=== PATIENT | male | born 1965 | race Hispanic/Latino ===

== ENCOUNTER 2017-06-27 11:56 | Emergency (ER) | payer SELFPAY ==
[~2017-06-27 11:56] MED LIST: NAPROXEN500 M2 ORAL; NKM; NORCO 5-325 TA1 EACH PO
--- NOTE | 2017-06-27 12:24 | Emergency Room Report ---
History of Present Illness Present Illness HPI The patient is a 51-year-old male who has left before being triaged and has left without being seen (HERNESTO KAUFFMAN) Allergies: Coded Allergies: No Known Allergies (Unverified , 06/21/13) Patient History Past Medical History: see triage record Pertinent Family History: none (HERNESTO KAUFFMAN) Medical Decision Making PA Attestation Dr. Bahena is my supervising physician. Patient management was discussed with my supervising physician (HERNESTO KAUFFMAN) ER Course The patient is a 51-year-old male who has left before being triaged and has left without being seen (HERNESTO KAUFFMAN) ER Course Patient presented by ambulance. Upon arrival patient screaming to be seen immediately. I spoke the patient upon arrival. I asked the patient to keep his voice down as he was disrupting the emergency room. Patient continues to scream and yell. Patient states that the are not willing to treat him however nursing and I repeatedly asked the patient to be placed in a seat to be treated. Patient walked out of the emergency room on his own stating that he is not being treated and will go somewhere else. encounter witnessed by nursing and EMS personnel (CYN BAHENA M.D.) Status: unchanged (CYN BAHENA M.D.) Disposition: LEFT W/OUT BEING SEEN Condition: Unknown Referrals: NOT CHOSEN IPA/,REFERRING (PCP) HERNESTO KAUFFMAN Jun 27, 2017 12:24 CYN BAHENA M.D. Jun 27, 2017 15:15
== END 2017-06-27 12:52 | disposition left against medical advice (07) ==
LOC: EDBD 11:56 → EDUNIT# 11:56 → EMR 11:56
DX: J02.9 Acute pharyngitis, unspecified (principal); Z53.21 Procedure and treatment not carried out due to patient leaving prior to being seen by health care provider
CPT/HCPCS: 99281

== ENCOUNTER 2020-07-25 04:14 | Emergency (ER) | payer OTHER ==
[~2020-07-25] VITALS: Ht 167.6 cm; Wt 68.0 kg
--- NOTE | 2020-07-25 04:20 | NUR ---
ED Nurse Note: Patient brought into the ED by ambulance [id number] with c/o abdominal pain. PAin is at epigastric area,04/04, and stated he had surgery done 07/19 at [place] for esophageal varices. Patient stated he started vomiting small blood clots after vomiting with pain days after the surgery. Patient denies CP/SOB/, fever/chills. PAtient denies injury/trauma. Patient is AAOX4 and ambulatory. Placed on monitor bed
--- NOTE | 2020-07-25 04:21 | NUR ---
ED Nurse Note: ERMD at bedside
--- NOTE | 2020-07-25 04:27 | Emergency Room Report ---
History of Present Illness General Chief Complaint: Abdominal Pain Source: Patient Present Illness HPI 55-year-old male here with epigastric abdominal pain. The patient had an endoscopy performed 6 days ago at [facility]. He said that he had a banding procedure done for esophageal varices. Says that since the procedure he has been doing well and slowly advancing his diet. However earlier tonight he began to have severe epigastric abdominal pain and felt nauseous but did not vomit. He said "I was spitting up small amounts of saliva with little specks of blood." No severe hematemesis. Had normal bowel movement earlier tonight without any evidence of melena or hematochezia. Pain is sharp in nature, located in the epigastric region, does not otherwise radiate. 8 out of 10 in intensity right now. Is not taking any medications for the pain. No headache, vision changes, fevers, chills, chest pain, palpitations, shortness of breath, back pain, diarrhea, dysuria. Allergies: Coded Allergies: No Known Allergies (Unverified , 06/21/13) COVID-19 Screening Contact w/high risk pt: No Experienced COVID-19 symptoms?: No COVID-19 Testing performed [employer]ICER: No Review of Systems All Other Systems: negative except mentioned in HPI Physical Exam Vital Signs Date Time Temp Pulse Resp B/P (MAP) Pulse Ox O2 Delivery O2 Flow Rate FiO2 07/25/20 04:18 97.0 65 14 152/93 (112) 98 Room Air Sp02 EP Interpretation: reviewed, normal General Appearance: alert, non-toxic, mild distress Head: normocephalic, atraumatic Eyes: bilateral eye normal inspection, bilateral eye PERRL ENT: hearing grossly normal, normal pharynx, no angioedema, normal voice Neck: full range of motion, supple/symm/no masses Respiratory: chest non-tender, lungs clear, normal breath sounds, speaking full sentences Cardiovascular #1: regular rate, rhythm, no edema Cardiovascular #2: 2+ carotid (R), 2+ carotid (L), 2+ radial (R), 2+ radial (L), 2+ dorsalis pedis (R), 2+ dorsalis pedis (L) Gastrointestinal: normal bowel sounds, non tender, soft, non-distended, other - Epigastric tenderness on palpation. Negative Rovsing sign, negative Bates sign. No rebound or guarding. No distention Rectal: deferred Genitourinary: normal inspection, no CVA tenderness Musculoskeletal: back normal, normal range of motion, gait/station normal, non- tender Neurologic: alert, motor strength/tone normal, oriented x3, sensory intact, responsive, speech normal Psychiatric: judgement/insight normal, memory normal, mood/affect normal, no suicidal/homicidal ideation Lymphatic: no adenopathy Medical Decision Making Diagnostic Impression: Primary Impression: Pancreatitis Additional Impressions: Abdominal pain Transaminitis ER Course EKG: NSR, no ischemia, intervals WNL. No ectopy. Rate 54 bpm. Normal axis Rhythm strip: patient monitored for arrhythmias - no malignant dysrhythmias, runs of PVCs, nor pauses noted Laboratory Tests Test 07/25/20 04:34 White Blood Count 3.7 K/UL (4.8-10.8) L Red Blood Count 3.94 M/UL (4.70-6.10) L Hemoglobin 10.3 G/DL (14.2-18.0) L Hematocrit 31.6 % (42.0-52.0) L Mean Corpuscular Volume 80 FL (80-99) Mean Corpuscular Hemoglobin 26.1 PG (27.0-31.0) L Mean Corpuscular Hemoglobin Concent 32.5 G/DL (32.0-36.0) Red Cell Distribution Width 18.8 % (11.6-14.8) H Platelet Count 100 K/UL (150-450) L Mean Platelet Volume 8.9 FL (6.5-10.1) Neutrophils (%) (Auto) 56.4 % (45.0-75.0) Lymphocytes (%) (Auto) 27.0 % (20.0-45.0) Monocytes (%) (Auto) 12.9 % (1.0-10.0) H Eosinophils (%) (Auto) 2.6 % (0.0-3.0) Basophils (%) (Auto) 1.2 % (0.0-2.0) Urine Color Yellow Urine Appearance Clear Urine pH 6 (4.5-8.0) Urine Specific [place] 1.020 (1.005-1.035) Urine Protein Negative (NEGATIVE) Urine Glucose (UA) Negative (NEGATIVE) Urine Ketones Negative (NEGATIVE) Urine Blood 2+ (NEGATIVE) H Urine Nitrite Negative (NEGATIVE) Urine Bilirubin Negative (NEGATIVE) Urine Urobilinogen Normal MG/DL (0.0-1.0) Urine Leukocyte Esterase Negative (NEGATIVE) Urine RBC 2-4 /HPF (0 - 0) H Urine WBC 0 /HPF (0 - 0) Urine Squamous Epithelial Cells None /LPF (NONE/OCC) Urine Bacteria None /HPF (NONE) Sodium Level 136 MMOL/L (136-145) Potassium Level 3.3 MMOL/L (3.5-5.1) L Chloride Level 101 MMOL/L (98-107) Carbon Dioxide Level 32 MMOL/L (21-32) Blood Urea Nitrogen 13 mg/dL (7-18) Creatinine 0.9 MG/DL (0.55-1.30) Estimated Glomerular Filtration Rate > 60 mL/min (>60) Glucose Level 114 MG/DL (74-106) H Calcium Level 8.3 MG/DL (8.5-10.1) L Total Bilirubin 0.9 MG/DL (0.2-1.0) Aspartate Amino Transferase (AST) 144 U/L (15-37) H Alanine Aminotransferase (ALT) 104 U/L (12-78) H Alkaline Phosphatase 263 U/L (46-116) H Troponin I 0.006 ng/mL (0.000-0.056) Total Protein 8.1 G/DL (6.4-8.2) Albumin 3.2 G/DL (3.4-5.0) L Globulin 4.9 g/dL Albumin/Globulin Ratio 0.7 (1.0-2.7) L Lipase 686 U/L (73-393) H Salicylates Level < 0.2 ug/mL (2.8-20) L Urine Opiates Screen Negative (NEGATIVE) Acetaminophen Level < 2 MCG/ML (10-30) L Urine Barbiturates Screen Negative (NEGATIVE) Phencyclidine (PCP) Screen Negative (NEGATIVE) Urine Amphetamines Screen Negative (NEGATIVE) Urine Benzodiazepines Screen Negative (NEGATIVE) Urine Cocaine Screen Positive (NEGATIVE) H Urine Marijuana (THC) Screen Negative (NEGATIVE) Serum Alcohol < 3 mg/dL CT abd pel: IMPRESSION: 1. There is advanced cirrhosis with a nodular liver. 2. There is moderate spinal measuring 17 cm in length by 17 cm AP by 6 cm transverse consistent with venous hypertension. 3. There are multiple gallstones with a moderately distended gallbladder. If there is clinical concern for acute cholecystitis, gallbladder ultrasound rec ommended for further evaluation. 4. There is mural thickening versus incomplete distention of the stomach. Gastritis cannot be excluded. 55-year-old male with history of fatty liver and esophageal varices status post variceal banding 6 days ago here with epigastric abdominal pain. Patient was hemodynamically stable and neurovascular intact in the emergency department. He received multiple dose of IV pain medication with eventual resolution of his pain. Lab results showed evidence of pancreatitis. LFTs were mildly elevated. Alcohol level negative. However urine drug screen was positive for cocaine. Patient still felt nauseous and was unable to tolerate p.o. in the emergency department. Troponin negative. EKG was unremarkable. CT showed evidence of possible acute cholecystitis. Patient's alkaline phosphatase was elevated. Currently awaiting right upper quadrant ultrasound at this time. Patient will be admitted for pancreatitis versus possible cholecystitis. Signed out to oncoming physician Dr. Bahena. Last Vital Signs Date Time Temp Pulse Resp B/P (MAP) Pulse Ox O2 Delivery O2 Flow Rate FiO2 07/25/20 04:18 97.0 65 14 152/93 (112) 98 Room Air Per Plasencia M.D. Jul 25, 2020 04:27
[2020-07-25] MEDS ORDERED: Omnipaque-300 100ml vial INJ PRN (04:30)
[2020-07-25] MEDS ORDERED: Lidocaine 2% Visc 15ml soln ORAL ONE (04:30)
[2020-07-25] MEDS ORDERED: Morphine Sulfate 4mg/ml Inj (IV USE ONLY) IVP ONE ×2 (04:30→05:45)
[2020-07-25] MEDS ORDERED: Mylanta II UD 30ml ORAL ONE (04:30)
[2020-07-25] MEDS ORDERED: Dicyclomine HCl 10mg/5ml oral soln ORAL ONE (04:30)
--- NOTE | 2020-07-25 04:30 | NUR ---
ED Nurse Note: Blood and urine sent to lab
[2020-07-25 04:43] LABS: APPEARANCE,URINE CLEAR; BASOPHILS % (AUTO) 1.2 % (0.0-2.0); BILIRUBIN, URINE NEGATIVE (NEGATIVE); EOSINOPHILS % (AUTO) 2.6 % (0.0-3.0); GLUCOSE, URINE (UA) NEGATIVE (NEGATIVE); HEMATOCRIT 31.6 % (42.0-52.0); HEMOGLOBIN 10.3 G/DL (14.2-18.0); KETONES,URINE NEGATIVE (NEGATIVE); LEUKOCYTE ESTERASE ,URINE NEGATIVE (NEGATIVE); MEAN CORPUSCULAR VOLUME 80 FL (80-99); MONOCYTES % (AUTO) 12.9 % (1.0-10.0); NEUTROPHILS % (AUTO) 56.4 % (45.0-75.0); NITRITE,URINE NEGATIVE (NEGATIVE); PH,URINE 6 (4.5-8.0); PLATELET COUNT 100 K/UL (150-450); PROTEIN,URINE NEGATIVE (NEGATIVE); RED BLOOD COUNT 3.94 M/UL (4.70-6.10); RED CELL DISTRIBUTION WIDTH 18.8 % (11.6-14.8); UROBILINOGEN,URINE NORMAL MG/DL (0.0-1.0); WHITE BLOOD COUNT 3.7 K/UL (4.8-10.8)
[2020-07-25 04:55] LABS: COLOR,URINE YELLOW
[2020-07-25 04:57] LABS: ALANINE AMINOTRANSFERASE 104 U/L (12-78); ALBUMIN 3.2 G/DL (3.4-5.0); ALBUMIN/GLOBULIN RATIO 0.7 (1.0-2.7); ALKALINE PHOSPHATASE 263 U/L (46-116); ASPARTATE AMINO TRANSFERASE 144 U/L (15-37); BILIRUBIN,TOTAL 0.9 MG/DL (0.2-1.0); BLOOD UREA NITROGEN 13 mg/dL (7-18); CALCIUM 8.3 MG/DL (8.5-10.1); CARBON DIOXIDE 32 MMOL/L (21-32); CHLORIDE 101 MMOL/L (98-107); CREATININE 0.9 MG/DL (0.55-1.30); POTASSIUM 3.3 MMOL/L (3.5-5.1); SODIUM 136 MMOL/L (136-145)
[2020-07-25 05:13] VITALS: BP 152/93
--- NOTE | 2020-07-25 05:30 | NUR ---
ED Nurse Note: CT scan done
--- NOTE | 2020-07-25 05:56 | Diagnostic Imaging Report ---
ADDENDUM - Added by Petr Au MD on 07/25/2020 7:01 AM (-07:00) Correction: The body of the dictation under spleen as well as the second line of the impression should read "There is moderate splenomegaly measuring 17 cm in length by 17 cm AP by 6 cm transverse consistent with portal venous hypertension." EXAM: CT Abdomen and Pelvis With Intravenous Contrast CLINICAL HISTORY: severe epigastric abdominal pain and felt nauseous but did not vomit. TECHNIQUE: Axial computed tomography images of the abdomen and pelvis with intravenous contrast. CTDI is 7.50 mGy and DLP is 404.40 mGy-cm. One or more of the following dose reduction techniques were used: automated exposure control, adjustment of the mA and/or kV according to patient size, use of iterative reconstruction technique. COMPARISON: No relevant prior studies available. FINDINGS: Lung bases: Unremarkable. No mass. No consolidation. ABDOMEN: Liver: There is advanced cirrhosis with a nodular liver. Gallbladder and bile ducts: There are multiple gallstones with a moderately distended gallbladder. If there is clinical concern for acute cholecystitis, gallbladder ultrasound recommended for further evaluation. No ductal dilation. Pancreas: Unremarkable. No mass. No ductal dilation. Spleen: Unremarkable. No splenomegaly. Adrenals: Unremarkable. No mass. Kidneys and ureters: Unremarkable. No solid mass. No hydronephrosis. Stomach and bowel: There is mural thickening versus incomplete distention of the stomach. Gastritis cannot be excluded. There is mild sigmoid diverticulosis without diverticulitis. PELVIS: Appendix: No findings to suggest acute appendicitis. Bladder: Unremarkable. No mass. Reproductive: Unremarkable as visualized. ABDOMEN and PELVIS: Intraperitoneal space: Unremarkable. No free air. No significant fluid collection. Bones/joints: No acute fracture. No dislocation. Soft tissues: Unremarkable. Vasculature: There is moderate spinal measuring 17 cm in length by 17 cm AP by 6 cm transverse consistent with venous hypertension. No abdominal aortic aneurysm. Lymph nodes: Unremarkable. No enlarged lymph nodes. IMPRESSION: 1. There is advanced cirrhosis with a nodular liver. 2. There is moderate spinal measuring 17 cm in length by 17 cm AP by 6 cm transverse consistent with venous hypertension. 3. There are multiple gallstones with a moderately distended gallbladder. If there is clinical concern for acute cholecystitis, gallbladder ultrasound recommended for further evaluation. 4. There is mural thickening versus incomplete distention of the stomach. Gastritis cannot be excluded.
[2020-07-25] MEDS ORDERED: cefTRIAXone 1 GM in NS 55 ML IVPB ONE (06:00)
--- NOTE | 2020-07-25 06:40 | NUR ---
ED Nurse Note: MIRIAM done
--- NOTE | 2020-07-25 06:56 | Diagnostic Imaging Report ---
EXAM: US Abdomen Complete CLINICAL HISTORY: PAIN TECHNIQUE: Real-time ultrasound of the abdomen with image documentation. COMPARISON: CT performed earlier the same day. FINDINGS: Liver: There is nodular liver consistent with cirrhosis. No intrahepatic bile duct dilation. Gallbladder: The gallbladder is mildly distended with multiple stones dependently. Gallbladder wall is at the upper limits of normal measuring 3 mm. No pericholecystic fluid is identified. The patient was not focally tender over the gallbladder. Common bile duct: Unremarkable as visualized. No stones. No dilation. Pancreas: Unremarkable as visualized. Kidneys: Unremarkable. No stones. No solid mass. No hydronephrosis. Spleen: There is splenomegaly consistent with portal venous hypertension. Aorta: Unremarkable. No aneurysm. Inferior vena cava: Unremarkable. IMPRESSION: Cholelithiasis without definite evidence of acute cholecystitis. Cirrhosis with splenomegaly consistent with portal venous hypertension.
--- NOTE | 2020-07-25 07:39 | NUR ---
ED Nurse Note: Called [facility] and spoke to MONIQUE (sup)to give report. Instructed to call [phone] and look for VIRGIL (charge nurse) instead - unable to give report/ no answer
--- NOTE | 2020-07-25 07:59 | NUR ---
ED Nurse Note: Report given to VIRGIL Charge nurse of [facility]
--- NOTE | 2020-07-25 08:08 | NUR ---
ED Nurse Note: received pt from MIRANDA Levi. pt speaking to ERMD regarding transfer. pt agreed with it. ERMD currently speaking to the pt's family on the phone.
--- NOTE | 2020-07-25 08:45 | NUR ---
ED Nurse Note: transportation arrived. report given to Layman. pt stable to ambulated to bathroom with steady gait. pt aao x4.
[2020-07-25 08:46] VITALS: BP 125/79
--- NOTE | 2020-07-25 08:48 | NUR ---
ED Nurse Note: pt left department in stable condition with ambulance.
== END 2020-07-25 08:50 | disposition short-term general hospital (02) ==
LOC: EDUNIT# 04:14 → EDBD 04:14 → EMR 04:20
DX: K85.90 Acute pancreatitis without necrosis or infection, unspecified (principal); R74.01 Elevation of levels of liver transaminase levels; K74.60 Unspecified cirrhosis of liver; K80.20 Calculus of gallbladder without cholecystitis without obstruction; R16.1 Splenomegaly, not elsewhere classified
CPT/HCPCS: 36415; 74177; 76700; 80053; 80307; 81003; 83690; 84484; 85025; 93005; 96361; 96365; 96368; 96375; 96376; G0480; G0481; J0696; J2270; J2405; J7030; Q9965; S0028; Z7502; 99285